=== PATIENT | female | born 1975 | race Caucasian/White ===

== ENCOUNTER 2019-01-28 15:53 | Emergency (ER) | payer MEDICAID ==
[2019-01-28] MEDS ORDERED: CEFTRIAXONE SODIUM 1 GM in 0.9 % SODIUM CHLORIDE 100ML 100 ML IVPB ONE (17:04)
[2019-01-28] MEDS ORDERED: 0.9 % SODIUM CHLORIDE 1000ML 1,000 ML IV PRN (17:04)
--- NOTE | 2019-01-28 17:04 | Emergency Department Record ---
History of Present Illness - General Chief Complaint: Difficulty Breathing Stated Complaint: [place] Time Seen by Provider: 01/28/19 16:51 Mode of Arrival: Ambulatory - History of Present Illness Initial Comments: seen at urgent care today and told her she had pneumonia 4 hours ago and seen at urgent care on [facility] in [place]. patient went up a flight of stairs and use the albuterol inhaler and had fluttering in her chest and dyspnea. Patient was given prednisone and zithromycin and phenergan with codiene cough syrup and an albuterol inhaler Onset/Timin -: Hour(s) Severity: Mild Severity scale (1-10): 7 Quality: Aching Consistency: Constant Improves With: Nothing Worsens With: Nothing Context: Recent illness, Recent URI Associated Symptoms: Cough, Palpitations Treatments Prior to Arrival: Other - Related Data Home Oxygen Therapy: No Home Medications Medication Instructions Recorded Confirmed Last Taken Multivitamin [Daily Multiple 1 tab PO DAILY 01/28/19 01/28/19 Unknown Vitamin] Previous Rx's Medication Instructions Recorded Cefdinir [Omnicef] 300 mg PO BID #20 cap 01/28/19 Allergies Allergy/AdvReac Type Severity Reaction Status Date / Time No Known Drug Allergies Allergy Verified 01/28/19 16:09 Travel Screening - Travel/Exposure Within Last 30 Days Have you traveled within the last 30 days?: No - Travel/Exposure Within Last Year Have you traveled outside the [place] in the last year?: No - Additonal Travel Details Have you been exposed to anyone with a communicable illness?: No - Travel Symptoms Symptom Screening: None Past Medical History - SOCIAL HISTORY Smoking Status: Current every day smoker Alcohol Use: Rare Drug Use: None - RESPIRATORY Hx Respiratory Disorders: Yes Hx Pneumonia: Yes (Dx today) - CARDIOVASCULAR Hx Cardio Disorders: No - NEURO Hx Neuro Disorders: No - GI Hx GI Disorders: No - Hx Genitourinary Disorders: No - ENDOCRINE Hx Endocrine Disorders: No - MUSCULOSKELETAL Hx Musculoskeletal Disorders: No - PSYCH Hx Psych Problems: No - HEMATOLOGY/ONCOLOGY Hx Hematology/Oncology Disorders: No Family Medical History Any Significant Family History?: No Family Hx Comment (NOT TO BE USED IN PLACE OF ITEMS BELOW): adopted Physical Exam - General General Appearance: Alert, Oriented x3, Cooperative, No acute distress - Head Head exam: Normal inspection - Eye Eye exam: Normal appearance, PERRL Pupils: Normal accommodation - ENT ENT exam: Normal exam, Mucous membranes moist, Normal external ear exam, Normal orophraynx, TM's normal bilaterally Ear exam: Normal external inspection. negative: External canal tenderness Nasal Exam: Normal inspection. negative: Discharge, Sinus tenderness Mouth exam: Normal external inspection, Tongue normal Teeth exam: Normal inspection. negative: Dental caries Throat exam: Normal inspection. negative: Tonsillar erythema, Tonsillar exudate - Neck Neck exam: Normal inspection, Full ROM. negative: Tenderness - Respiratory Respiratory exam: Rhonchi (rml). negative: Respiratory distress - Cardiovascular Cardiovascular Exam: Regular rate, Normal rhythm, Normal heart sounds - GI/Abdominal GI/Abdominal exam: Soft, Normal bowel sounds. negative: Tenderness - Rectal Rectal exam: Deferred - exam: Deferred - Extremities Extremities exam: Normal inspection, Full ROM, Normal capillary refill. negative: Tenderness - Back Back exam: Reports: Normal inspection, Full ROM. Denies: Muscle spasm, Rash noted, Tenderness - Neurological Neurological exam: Alert, Normal gait, Oriented X3, Reflexes normal - Psychiatric Psychiatric exam: Normal affect, Normal mood - Skin Skin exam: Dry, Intact, Normal color, Warm Course Vital Signs 01/28/19 15:58 Temperature 98.6 F Pulse Rate 107 H Respiratory 17 Rate Blood Pressure 133/83 Pulse Ox 95 - Reevaluation(s) Reevaluation #1: patient was given the choice of going home or admission and she wants to go home. pulse ox 95% 01/28/19 18:39 Medical Decision Making - Data Complexity MDM Data: Labs Ordered and/or Reviewed (wbc 6,800), X-Ray Ordered and/or Reviewed (chest xray right middle lobe pneumonia) - Lab Data Result diagrams: 01/28/19 17:25 01/28/19 17:25 Disposition Clinical Impression: Pneumonia Qualifiers: Pneumonia type: due to unspecified organism Laterality: right Lung location: middle lobe of lung Qualified Code(s): J18.1 - Lobar pneumonia, unspecified organism Disposition: Home, Self-Care Condition: (1) Good Instructions: Pneumonia (ED) Additional Instructions: follow up with family Dr in 2 to 5 days drink fluids Prescriptions: Cefdinir [Omnicef] 300 mg PO BID #20 cap Forms: Patient Portal Access Time of Disposition: 18:47 Quality - Quality Measures Quality Measures: N/A - Blood Pressure Screening Does Patient Have Any of the Following: No Blood Pressure Classification: Pre-Hypertensive BP Reading Systolic Measurement: 133 Diastolic Measurement: 83 Screening for High Blood Pressure: < Pre-Hypertensive BP, F/U Documented > [ [id number]] Pre-Hypertensive Follow-up Interventions: Referral to alternative/primary care provider.
[2019-01-28 17:37] LABS: HEMATOCRIT 37.4 % (35.0-47.0); HEMOGLOBIN 12.1 gm/dl (11.6-16.0); MEAN CELL VOLUME 91.2 fl (81-97); MEAN CORPUSCULAR HEMOGLOBIN 29.5 pg (27-33); MEAN CORPUSCULAR HGB CONC 32.4 g/dl (32-36); PLATELET COUNT 218 K/uL (130-400); RED CELL DISTRIBUTION WIDTH 12.9 % (11.5-14.5); WHITE BLOOD COUNT W/O DIFF 6.8 K/uL (4.2-12.2)
[2019-01-28] MEDS ORDERED: IBUPROFEN 200 MG TABLET PO ONE (17:39)
[2019-01-28 17:50] LABS: BLOOD UREA NITROGEN 5 mg/dL (6-20); CREATININE 0.7 mg/dL (0.5-0.9); EST GLOMERULAR FILTRATION RATE > 60 mL/min
[2019-01-28 17:53] LABS: GLUCOSE,RANDOM 112 mg/dL (74-109)
[2019-01-28] MEDS ORDERED: AZITHROMYCIN 500 MG TABLET PO ONE (18:18)
--- NOTE | 2019-01-30 12:26 | RADIOLOGY REPORT ---
EXAM: CHEST, TWO VIEWS HISTORY: RECENTLY DIAGNOSED RIGHT SIDED PNEUMONIA, DIFFICULTY BREATHING. TECHNIQUE: Two views of the chest were obtained. Comparison: None. FINDINGS: The cardiac silhouette is within normal size limits. Mild patchy opacity in the right middle lobe. No significant pleural fluid collection or visible pneumothorax. IMPRESSION: MILD PATCHY RIGHT MIDDLE LOBE OPACITY SUSPICIOUS FOR PNEUMONIA. JOB NUMBER: [id number] MTDD
== END 2019-01-28 19:01 | disposition home or self-care (01) ==
LOC: ER 15:53 → UNDOADMOB 18:38 → MEDSURG 18:38 → ER 19:01
DX: J18.1 Lobar pneumonia, unspecified organism (principal); R06.00 Dyspnea, unspecified; R00.2 Palpitations; F17.210 Nicotine dependence, cigarettes, uncomplicated
CPT/HCPCS: 71046; 80048; 85027; 93005; 93010; 96365; 99284